=== PATIENT | female | born 1950 | race Caucasian/White ===

== ENCOUNTER → 2018-09-10 11:22 | Outpatient (CLI) | payer MEDICARE, OTHER, SELFPAY ==
--- NOTE | 2018-09-10 | DI.MG.S_ITS ---
BILATERAL DIGITAL SCREENING MAMMOGRAM 3D/2D WITH CAD: 09/10/2018 CLINICAL: Routine screening. Comparison is made to exams dated: 11/02/2017 mammogram, 01/02/2016 mammogram, and 11/14/2014 mammogram - [facility]. The tissue of both breasts is extremely dense, which lowers the sensitivity of mammography. Current study was also evaluated with a Computer Aided Detection (CAD) system. A linear scar marker overlies the right breast. No significant masses, calcifications, or other findings are seen in either breast. There has been no significant interval change. IMPRESSION: NEGATIVE There is no mammographic evidence of malignancy. A 1 year screening mammogram is recommended. This exam was interpreted at Station ID: [id number]. NOTE: For mammograms, a report in lay terms will be sent to the patient. Approximately 15% of breast malignancies will not be visualized mammographically. In the management of a palpable breast mass, a negative mammogram must not discourage biopsy of a clinically suspicious lesion. Electronically Signed By: Richard forde/breanna:09/13/2018 01:58:19 letter sent: Normal Exam ACR BI-RADS Category 1: Negative 3341F
== END ==
PROVIDERS: PCP Internal Medicine; Visit Provider Internal Medicine
DX: Z12.31 Encounter for screening mammogram for malignant neoplasm of breast (principal)
CPT/HCPCS: 77063; 77067

== ENCOUNTER 2019-08-11 12:47 | Day surgery (SDC) | payer MEDICARE, OTHER, SELFPAY ==
[2019-08-11] VITALS (8 sets, daily range): BP systolic 96–125; BP diastolic 56–74; PULSE 87–107; RESP 12–16; TEMP 36.5–37.1; O2SAT 97–100; BMI 18.6
[2019-08-11] MEDS: SODIUM CHLORIDE 0.9% 1,000 ML 42 ML IV (13:19)
--- NOTE | 2019-08-11 14:57 | PM.OP.ENDO ---
Operative Date/Time/Diagnoses Date of procedure: 08/11/19 Time of procedure: 14:58 Pre-op diagnosis: See indication and findings Procedure & Clinicians Study performed: Colonoscopy Same procedure as scheduled: Yes Indications: Screening colonoscopy. Last colonoscopy over 10 years ago Surgeon: Oralia Germain Procedure Notes Procedure in detail: After informed consent was obtained the patient was placed lateral decubitus position. Video colonoscope was placed the rectum slowly advanced to cecum. On slow withdrawal mucosa was carefully examined. The scope was removed. The patient tolerated the procedure well. Blood loss none Complications none Sedation Total sedation time 20 minutes Versed 5 mg fentanyl 100 mg IV titration Findings 1.Scattered colonic diverticulosis particularly in the sigmoid colon 2. Otherwise negative colonoscopy to cecum Patient will not need follow-up colonoscopy for another 10 years.
--- NOTE | 2019-08-11 15:00 | PM.HP.1 ---
History of Present Illness History of Present Illness Date Patient Seen: 08/11/19 Time Patient Seen: 15:00 Chief complaint: [id number] Narrative: Screening colonoscopy. Last colonoscopy over 10 years ago Patient History Social History household members: spouse Family & Social History Social History: household members spouse Meds Home Medications and Allergies Home Medications Medication Instructions Recorded Confirmed Type Citalopram Hydrobromide #0 06/13/10 History (Citalopram HBr) Ranitidine Hydrochloride #0 06/13/10 History (Ranitidine HCl) Sumatriptan Succinate (Imitrex) #0 06/13/10 History Topiramate (Topamax) #0 06/13/10 History Allergies Allergy/AdvReac Type Severity Reaction Status Date / Time No Known Drug Allergies Allergy Verified 08/11/19 13:14 Exam Vital Signs (past 8 hours): - 08/11/19 13:06 Temperature 98.1 F Pulse Rate 107 H Respiratory Rate 16 Blood Pressure 125/74 Pulse Oximetry 100 Oxygen Delivery Method Room Air Narrative Exam Narrative: Oropharynx free of lesions Chest clear to auscultation percussion Cardiac exam reveals no S3 or murmur Assessment & Plan Assessment & Plan narrative: Need for screening colonoscopy. Risks, benefits, alternatives have been explained.
[2019-08-11] MEDS: fentaNYL 250 MCG/5 ML INJ IV (15:02)
[2019-08-11] MEDS: MIDAZOLAM 5 MG/5 ML VIAL IV (15:02)
== END 2019-08-11 16:02 | disposition home or self-care (01) ==
LOC: ENDO 12:51
PROVIDERS: PCP Internal Medicine; Visit Provider Internal Medicine Gastroenterology
PROC: 0DJD8ZZ Inspection of Lower Intestinal Tract, Via Natural or Artificial Opening Endoscopic (ICD-10-PCS; CPT 45378; principal; 2019-08-11 14:00)
DX: Z12.11 Encounter for screening for malignant neoplasm of colon (principal); K57.30 Diverticulosis of large intestine without perforation or abscess without bleeding
CPT/HCPCS: G0121; J2250; J3010

== ENCOUNTER 2019-09-21 06:26 | Day surgery (SDC) | payer MEDICARE, OTHER, SELFPAY ==
[2019-09-21] MEDS: PROPARACAINE 0.5% OPHTH SOL 2 DROPS EYE-OP (07:12)
[2019-09-21] MEDS: CATARACT EYE COMPOUND (10 DROPS/SYRINGE) 3 DROPS EYE-OP (07:13)
[2019-09-21 07:22] VITALS: BP 119/64; PULSE 56; RESP 14; TEMP 36.8; O2SAT 100; BMI 18.6
--- NOTE | 2019-09-21 07:47 | PM.PREOP ---
Pre-operative Note Interval Note History & Physical reviewed/Exam performed by Physician: No Changes to H&P: No
--- NOTE | 2019-09-21 07:47 | PM.OP.1 ---
Operative Date/Time/Diagnoses Pre-op diagnosis: Nuclear cataract right eye Procedure & Clinicians Procedure: Cataract Surgery Same procedure as scheduled: Yes Surgeon: Elgin Gutierrez Anesthesia Type: MAC +/- and Sedation Operative Notes Procedure in detail: Patient brought to the operating suite. Tetracaine drops placed in the right eye. Patient was prepped and draped in sterile manner. Wire lid speculum was placed in the eye. Betadine drops were placed on the eye. This was irrigated. Lidocaine jelly was placed on the eye. A paracentesis port was created with a side-port blade. 0.1 mL 1% preservative free lidocaine was injected into the anterior chamber. The anterior chamber was deepened with viscoelastic. 2.6 mm keratome was used to create a temporal clear corneal incision. Cystotome and Utrata forceps were used to create continuous tear capsulorrhexis. Balanced salt solution was used to hydro dissect the nucleus. The phacoemulsification handpiece was inserted and the nucleus was removed using the stop and chop technique. The irrigation aspiration handpiece was inserted and the remaining cortex was removed. Anterior chamber was deepened with viscoelastic. An Skinner ZCB00 intraocular lens with a power of 24.0 was injected into the capsular bag. Irrigation aspiration handpiece was inserted and the remaining viscoelastic was removed. Incision was hydrated with balanced salt solution and found to be leak free with pressure with Weck-Heather sponges. 0.1 mL Vigamox injected anterior chamber. 0.3 mL Kenalog 10 mg was injected subconjunctivally. Lid speculum was removed. The patient left the operating room in excellent condition. Complications: none Post-operative Condition: stable Disposition: same day surgery
[2019-09-21] MEDS: LIDOCAINE JELLY 2% 5 ML 1 APPLIC TOP (08:01)
[2019-09-21] MEDS: CHONDROIDTIN/SOD HYALURONATE 1.05 ML SYRINGE INTRAOCULA (08:01)
[2019-09-21] MEDS: MOXIFLOXACIN INJ 5 MG/ML VIAL EYE-OP (08:01)
[2019-09-21] MEDS: TRIAMCINOLONE 50 MG/5 ML VIAL INJ (08:02)
[2019-09-21] MEDS: TETRACAINE 0.5% OPHTH DROPS 4 ML 2 DROPS EYE-OP (08:02)
[2019-09-21] MEDS: PHENYLEPHRINE/LIDOCAINE VIAL (OR) 0.2 ML EYE-OP (08:02)
[2019-09-21] MEDS: BALANCED SALT IRRIG SOLN NO.2 500 ML, EPINEPHrine 1 MG IRR (08:03)
[2019-09-21 08:19] VITALS: BP 140/73; PULSE 57; RESP 12; TEMP 36.7; O2SAT 98
--- NOTE | 2019-09-21 08:20 | SUR.PHASEII ---
From the OR, denies pain/nausea, states that she feels 'a little loopy'. Oriented and appropriate, fluids given and tolerated well.
== END 2019-09-21 08:37 | disposition home or self-care (01) ==
LOC: OR 06:28
PROVIDERS: PCP Internal Medicine; Visit Provider Ophthalmology
PROC: (CPT 66984; principal; 2019-09-21 07:45)
DX: H25.11 Age-related nuclear cataract, right eye (principal)
CPT/HCPCS: 66984; J0171; J2250; J3010; J3301

== ENCOUNTER 2019-10-05 06:55 | Day surgery (SDC) | payer MEDICARE, OTHER, SELFPAY ==
[2019-10-05] MEDS: PROPARACAINE 0.5% OPHTH SOL 2 DROPS EYE-OP (07:55)
[2019-10-05 07:57] VITALS: BP 123/63; PULSE 54; RESP 16; TEMP 36.2; O2SAT 100; BMI 18.1
[2019-10-05] MEDS: CATARACT EYE COMPOUND (10 DROPS/SYRINGE) 3 DROPS EYE-OP (08:05)
--- NOTE | 2019-10-05 08:36 | PM.PREOP ---
Pre-operative Note Interval Note History & Physical reviewed/Exam performed by Physician: No Changes to H&P: No
--- NOTE | 2019-10-05 08:36 | PM.OP.1 ---
Operative Date/Time/Diagnoses Pre-op diagnosis: Nuclear Cataract Left eye Post-op diagnosis: same Procedure & Clinicians Surgeon: Elgin Gutierrez Anesthesia Type: MAC +/- and Sedation Operative Notes Procedure in detail: Patient brought to the operating suite. Tetracaine drops placed in the left eye. Patient was prepped and draped in sterile manner. Wire lid speculum was placed in the eye. Betadine drops were placed on the eye. This was irrigated. Lidocaine jelly was placed on the eye. A paracentesis port was created with a side-port blade. 0.1 mL 1% preservative free lidocaine was injected into the anterior chamber. The anterior chamber was deepened with viscoelastic. 2.6 mm keratome was used to create a temporal clear corneal incision. Cystotome and Utrata forceps were used to create continuous tear capsulorrhexis. Balanced salt solution was used to hydro dissect the nucleus. The phacoemulsification handpiece was inserted and the nucleus was removed using the stop and chop technique. The irrigation aspiration handpiece was inserted and the remaining cortex was removed. Anterior chamber was deepened with viscoelastic. An Skinner ZCB00 intraocular lens with a power of 24.0 was injected into the capsular bag. Irrigation aspiration handpiece was inserted and the remaining viscoelastic was removed. Incision was hydrated with balanced salt solution and found to be leak free with pressure with Weck-Heather sponges. 0.1 mL Vigamox injected anterior chamber. 0.3 mL Kenalog 10 mg was injected subconjunctivally. Lid speculum was removed. The patient left the operating room in excellent condition. Complications: none Post-operative Condition: stable Disposition: same day surgery
--- NOTE | 2019-10-05 08:48 | SUR.OPER ---
Supine on eye stretcher, head on extension cradle secured with tape. Arms tucked at sides with blanket. Pillow under knees.
[2019-10-05] MEDS: MOXIFLOXACIN INJ 5 MG/ML VIAL EYE-OP (08:50)
[2019-10-05] MEDS: TRIAMCINOLONE 50 MG/5 ML VIAL INJ (08:50)
[2019-10-05] MEDS: PHENYLEPHRINE/LIDOCAINE VIAL (OR) 0.2 ML EYE-OP (08:50)
[2019-10-05] MEDS: TETRACAINE 0.5% OPHTH DROPS 4 ML 2 DROPS EYE-OP (08:51)
[2019-10-05] MEDS: CHONDROIDTIN/SOD HYALURONATE 1.05 ML SYRINGE INTRAOCULA (08:51)
[2019-10-05] MEDS: LIDOCAINE JELLY 2% 5 ML 1 APPLIC TOP (08:51)
[2019-10-05] MEDS: BALANCED SALT IRRIG SOLN NO.2 500 ML, EPINEPHrine 1 MG IRR (08:52)
[2019-10-05 09:15] VITALS: BP 126/71; PULSE 56; RESP 16; TEMP 36.2; O2SAT 99
== END 2019-10-05 09:21 | disposition home or self-care (01) ==
LOC: OR 06:57
PROVIDERS: PCP Internal Medicine; Visit Provider Ophthalmology
PROC: (CPT 66984; principal; 2019-10-05 08:45)
DX: H25.12 Age-related nuclear cataract, left eye (principal)
CPT/HCPCS: 66984; J0171; J2250; J3010; J3301

== ENCOUNTER → 2020-06-06 15:05 | Outpatient (CLI) | payer MEDICARE, OTHER, SELFPAY ==
--- NOTE | 2020-06-06 | DI.MG.S_ITS ---
BILATERAL DIGITAL SCREENING MAMMOGRAM 3D/2D WITH CAD: 06/06/2020 CLINICAL: Routine screening. Comparison is made to exams dated: 09/10/2018 mammogram - [facility], 01/02/2016 mammogram, 11/02/2017 mammogram, and 11/14/2014 mammogram - [facility] [place]. The tissue of both breasts is extremely dense, which lowers the sensitivity of mammography. Current study was also evaluated with a Computer Aided Detection (CAD) system. No significant masses, calcifications, or other findings are seen in either breast. There has been no significant interval change. IMPRESSION: NEGATIVE There is no mammographic evidence of malignancy. A 1 year screening mammogram is recommended. This exam was interpreted at Station ID: [id number]. NOTE: For mammograms, a report in lay terms will be sent to the patient. Approximately 15% of breast malignancies will not be visualized mammographically. In the management of a palpable breast mass, a negative mammogram must not discourage biopsy of a clinically suspicious lesion. Electronically Signed By: Beckie patiño/breanna:06/06/2020 17:53:01 letter sent: Normal Exam ACR BI-RADS Category 1: Negative 3341F
== END ==
PROVIDERS: PCP Internal Medicine; Referring Provider Internal Medicine; Visit Provider Internal Medicine
DX: Z12.31 Encounter for screening mammogram for malignant neoplasm of breast (principal); Z13.820 Encounter for screening for osteoporosis; M81.0 Age-related osteoporosis without current pathological fracture; Z78.0 Asymptomatic menopausal state; Z82.62 Family history of osteoporosis
CPT/HCPCS: 77063; 77067; 77080

== ENCOUNTER → 2021-03-12 10:38 | Outpatient (CLI) | payer MEDICARE, OTHER, SELFPAY ==
[2021-03-12 11:54] LABS: Add Manual Diff / Slide Review NO; Basophils Absolute Auto 100 /uL (0-100); Basophils Percent Auto 0.9 % (0-2); Eosinophils Absolute Auto 100 /uL (0-450); Eosinophils Percent Auto 2.2 % (2-4); Hematocrit 38.9 % (36-46); Hemoglobin 13.1 g/dL (12.0-16.0); Lymphocytes Absolute Auto 2100 /uL (1100-4500); Lymphocytes Percent Auto 31.1 % (25-40); Mean Corpuscular HGB Conc 33.5 % (30-36); Mean Corpuscular Hemoglobin 30.1 PG (26-34); Mean Corpuscular Volume 89.8 fL (80-100); Monocytes Absolute Auto 600 /uL (0-900); Monocytes Percent Auto 8.5 % (3-14); Neutrophils Absolute Auto 3800 /uL (1500-7000); Neutrophils Percent Auto 57.3 % (50-75); Platelet Count 192 X10^3/uL (150-400); Red Blood Cell Count 4.33 X10^6/uL (4.0-5.2); Red Cell Distribution Width 13.7 % (11.6-14.8); White Blood Cell Count 6.7 X10^3/uL (4.5-11.0)
[2021-03-12 11:58] LABS: Alanine Aminotransferase 21 IU/L (<35); Albumin 4.6 g/dL (3.5-5.0); Albumin Globulin Ratio 1.6 (1.0-2.8); Alkaline Phosphatase 48 U/L (38-126); Aspartate Aminotransferase 27 IU/L (14-36); BUN Creatinine Ratio 24.1 (6-22); Bilirubin Total 0.2 mg/dL (0.2-1.3); Blood Urea Nitrogen 19 mg/dL (7-17); Calcium 10.3 mg/dL (8.4-10.2); Carbon Dioxide 26 mmol/L (22-32); Chloride 107 mmol/L (98-107); Estimated Glomerular Filt Rate > 60.0 mL/min (>60); Globulin 2.8 g/dL (1.7-4.1); Glucose 97 mg/dL (80-110); HEMOLYSIS < 15 (0-50); Potassium 4.8 mmol/L (3.4-5.1); Sodium 139 mmol/L (137-145); Total Protein 7.4 g/dL (6.3-8.2)
== END ==
PROVIDERS: PCP Registered Nurse; Referring Provider Registered Nurse; Visit Provider Registered Nurse
DX: G43.709 Chronic migraine without aura, not intractable, without status migrainosus (principal); N39.0 Urinary tract infection, site not specified
CPT/HCPCS: 36415; 80053; 85025

== ENCOUNTER → 2021-08-02 14:10 | Outpatient (CLI) | payer MEDICARE, OTHER, SELFPAY ==
--- NOTE | 2021-08-02 14:12 | DI.MG.S_ITS ---
BILATERAL DIGITAL SCREENING MAMMOGRAM 3D/2D WITH CAD: 08/02/2021 CLINICAL: Routine screening. Comparison is made to exams dated: 06/06/2020 mammogram, 09/10/2018 mammogram - [facility], and 11/02/2017 mammogram - [facility] [place]. The tissue of both breasts is extremely dense, which lowers the sensitivity of mammography. Current study was also evaluated with a Computer Aided Detection (CAD) system. No significant masses, calcifications, or other findings are seen in either breast. There has been no significant interval change. IMPRESSION: NEGATIVE There is no mammographic evidence of malignancy. A 1 year screening mammogram is recommended. This exam was interpreted at Station ID: [id number]. NOTE: For mammograms, a report in lay terms will be sent to the patient. Approximately 15% of breast malignancies will not be visualized mammographically. In the management of a palpable breast mass, a negative mammogram must not discourage biopsy of a clinically suspicious lesion. Electronically Signed By: Jamari Pena M.D., jr/breanna:08/02/2021 15:39:35 letter sent: Normal Exam ACR BI-RADS Category 1: Negative 3341F
== END ==
PROVIDERS: PCP Registered Nurse; Referring Provider Registered Nurse; Visit Provider Registered Nurse
DX: Z12.31 Encounter for screening mammogram for malignant neoplasm of breast (principal)
CPT/HCPCS: 77063; 77067

== ENCOUNTER → 2022-07-09 14:33 | Outpatient (CLI) | payer MEDICARE, OTHER, SELFPAY | PROVIDERS: PCP Registered Nurse Diabetes Educator; Referring Provider Registered Nurse Diabetes Educator; Visit Provider Registered Nurse Diabetes Educator | DX: Z13.820 Encounter for screening for osteoporosis (principal); M81.0 Age-related osteoporosis without current pathological fracture; Z78.0 Asymptomatic menopausal state | CPT/HCPCS: 77080 ==

== ENCOUNTER → 2022-08-15 11:33 | Outpatient (CLI) | payer MEDICARE, OTHER, SELFPAY ==
--- NOTE | 2022-08-15 11:37 | DI.MG.S_ITS ---
BILATERAL DIGITAL SCREENING MAMMOGRAM 3D/2D WITH CAD: 08/15/2022 CLINICAL: Routine screening. Comparison is made to exams dated: 08/02/2021 mammogram, 06/06/2020 mammogram, and 09/10/2018 mammogram - [facility]. Both breasts are extremely dense, which lowers the sensitivity of mammography (category d />75% glandular tissue). Current study was also evaluated with a Computer Aided Detection (CAD) system. No significant masses, calcifications, or other findings are seen in either breast. There has been no significant interval change. IMPRESSION: NEGATIVE There is no mammographic evidence of malignancy. A 1 year screening mammogram is recommended. Based on the Tyrer Cuzick model (a risk assessment model) the patient's lifetime risk is 10.9% and her 10 year risk is 7.6%. According to the ACR, ACS, and NCCN guidelines, an annual breast MRI exam along with mammogram is recommended if the patient's lifetime risk is 20% or greater. This exam was interpreted at Station ID: [id number]. NOTE: For mammograms, a report in lay terms will be sent to the patient. Approximately 15% of breast malignancies will not be visualized mammographically. In the management of a palpable breast mass, a negative mammogram must not discourage biopsy of a clinically suspicious lesion. Electronically Signed By: Fidel aguilar/breanna:08/15/2022 12:32:02 letter sent: Normal Exam ACR BI-RADS Category 1: Negative 3341F
== END ==
PROVIDERS: PCP Registered Nurse Diabetes Educator; Referring Provider Registered Nurse Diabetes Educator; Visit Provider Registered Nurse Diabetes Educator
DX: Z12.31 Encounter for screening mammogram for malignant neoplasm of breast (principal)
CPT/HCPCS: 77063; 77067

== ENCOUNTER → 2023-08-21 13:22 | Outpatient (CLI) | payer MEDICARE, OTHER, SELFPAY ==
--- NOTE | 2023-08-21 13:26 | DI.MG.S_ITS ---
BILATERAL DIGITAL SCREENING MAMMOGRAM 3D/2D WITH CAD: 08/21/2023 CLINICAL: Routine screening. Comparison is made to exams dated: 08/15/2022 mammogram, 08/02/2021 mammogram, and 06/06/2020 mammogram - [facility]. Both breasts are extremely dense, which lowers the sensitivity of mammography (category d />75% glandular tissue). Current study was also evaluated with a Computer Aided Detection (CAD) system. No significant masses, calcifications, or other findings are seen in either breast. There has been no significant interval change. IMPRESSION: NEGATIVE There is no mammographic evidence of malignancy. A 1 year screening mammogram is recommended. Based on the Tyrer Cuzick model (a risk assessment model) the patient's lifetime risk is 10.3% and her 10 year risk is 7.8%. According to the ACR, ACS, and NCCN guidelines, an annual breast MRI exam along with mammogram is recommended if the patient's lifetime risk is 20% or greater. This exam was interpreted at Station ID: [id number]. NOTE: For mammograms, a report in lay terms will be sent to the patient. Approximately 15% of breast malignancies will not be visualized mammographically. In the management of a palpable breast mass, a negative mammogram must not discourage biopsy of a clinically suspicious lesion. Electronically Signed By: Ling stoll/breanna:08/21/2023 16:52:12 letter sent: Normal Exam ACR BI-RADS Category 1: Negative 3341F
== END ==
PROVIDERS: PCP Registered Nurse Diabetes Educator; Referring Provider Registered Nurse Diabetes Educator; Visit Provider Registered Nurse Diabetes Educator
DX: Z12.31 Encounter for screening mammogram for malignant neoplasm of breast (principal)
CPT/HCPCS: 77063; 77067

== ENCOUNTER 2024-04-25 21:07 | Observation (INO) | payer MEDICARE, OTHER, SELFPAY ==
[2024-04-25 21:23] VITALS: BP 124/58; PULSE 84; RESP 18; TEMP 36.5; O2SAT 100; BMI 19.3
[2024-04-25] MEDS: ONDANSETRON 4 MG/2 ML INJ IV ×2 (22:00→22:45)
[2024-04-25 22:03] LABS: Add Manual Diff / Slide Review NO; Basophils Absolute Auto 0 /uL (0-100); Basophils Percent Auto 0.3 % (0-2); Eosinophils Absolute Auto 0 /uL (0-450); Eosinophils Percent Auto 0.1 % (2-4); Hematocrit 37.9 % (36-46); Lymphocytes Absolute Auto 1300 /uL (1100-4500); Lymphocytes Percent Auto 6.7 % (25-40); Mean Corpuscular HGB Conc 34.3 % (30-36); Mean Corpuscular Hemoglobin 30.4 PG (26-34); Mean Corpuscular Volume 88.7 fL (80-100); Monocytes Absolute Auto 900 /uL (0-900); Monocytes Percent Auto 4.7 % (3-14); Neutrophils Absolute Auto 16700 /uL (1500-7000); Neutrophils Percent Auto 88.2 % (50-75); Platelet Count 212 X10^3/uL (150-400); Red Blood Cell Count 4.28 X10^6/uL (4.0-5.2); Red Cell Distribution Width 13.5 % (11.6-14.8); White Blood Cell Count 18.9 X10^3/uL (4.5-11.0)
[2024-04-25 22:10] LABS: Alanine Aminotransferase 23 IU/L (<35); Albumin 4.5 g/dL (3.5-5.0); Albumin Globulin Ratio 1.7 (1.0-2.8); Alkaline Phosphatase 74 U/L (38-126); Aspartate Aminotransferase 25 IU/L (14-36); BUN Creatinine Ratio 24.7 (6-22); Bilirubin Total 0.6 mg/dL (0.2-1.3); Blood Urea Nitrogen 21 mg/dL (7-17); Calcium 9.8 mg/dL (8.4-10.2); Carbon Dioxide 19 mmol/L (22-32); Chloride 109 mmol/L (98-107); Estimated Glomerular Filt Rate > 60 mL/min (>60); Globulin 2.7 g/dL (1.7-4.1); Glucose 197 mg/dL (80-110); HEMOLYSIS < 15 (0-50); Lipase 95 U/L (23-300); Sodium 139 mmol/L (137-145); Total Protein 7.2 g/dL (6.3-8.2)
--- NOTE | 2024-04-25 22:21 | ED.NAVMDI ---
HPI - Nausea/Vomiting/Diarrhea General Chief complaint: Nausea/Vomiting/Diarrhea Stated complaint: Abd pain/V/D Time Seen by Provider: 04/25/24 21:48 Source: patient Mode of arrival: Wheelchair History of Present Illness HPI Narrative: 74-year-old female with history of migraines presents for several hours of nausea, vomiting, diarrhea, vague right-sided abdominal pain. Pain located somewhere between the upper bones of her pelvis and her ribcage. Nothing seems to make it better or worse. Denies blood in emesis or diarrhea. Denies fevers. Related Data Home Medications Medication Instructions Recorded Confirmed latanoprost 0.005 % eye drops 1 drop EYE-BOTH DAILY 08/11/20 03/23/24 sumatriptan succinate 100 mg tablet 100 mg PO BID PRN 08/11/20 03/23/24 Previous Rx's Medication Instructions Recorded topiramate 50 mg tablet 50 mg PO DAILY #90 tabs 07/05/21 citalopram 40 mg tablet 40 mg PO DAILY #90 tabs 09/17/21 Allergies Allergy/AdvReac Type Severity Reaction Status Date / Time ibandronate sodium Allergy dysphagia Verified 03/23/24 15:15 [From Boniva] Penicillins Allergy Verified 03/23/24 15:15 Patient History Medical History Osteoporosis UTI (urinary tract infection) Chronic migraine Osteopenia Glaucoma History of atypical migraine Melanoma in situ of right lower leg (~2005) Surgical History Anesthesia History of cataract removal with insertion of prosthetic lens (~2018) History of colonoscopy Family History Father Hyperlipidemia Mother Congestive heart failure Hypertension Social History household members: spouse Smoking Status: Never smoker alcohol intake: never Smoking Status: Never smoker Exam Initial Vital Signs Initial Vital Signs: Vital Signs Temperature 97.7 F 04/25/24 21:23 Pulse Rate 84 04/25/24 21:23 Respiratory Rate 18 04/25/24 21:23 Blood Pressure 124/58 L 04/25/24 21:23 Pulse Oximetry 100 04/25/24 21:23 Oxygen Delivery Method Room Air 04/25/24 21:23 Const: Awake, alert, ill-appearing, nontoxic, actively dry heaving Cardiac: regular rate, regular rhythm RESP: unlabored, clear bilaterally, no wheezing GI: Soft, generalized right-sided tenderness to palpation, no rebound or guarding Skin: Warm, Dry, intact, no rashes Neuro: AO x3, CN II-XII grossly intact, moves all extremities Course Orders Ordered: ED Orders 04/25/24 21:50 Complete Blood Count AUTO DIFF Stat Comprehensive Metabolic Panel Stat Lipase Stat 04/25/24 21:55 EKG-12 Lead Stat 04/25/24 22:32 CT abdomen pelvis w con Stat Sodium Chloride (Normal Saline 0.9%) 1,000 mls @ 125 mls/hr IV CONT CHENTE Last Admin: 04/26/24 02:46 Dose: 125 mls/hr Documented By: RICKI Morphine Sulfate (Morphine 2 Mg/Ml Inj) 2 mg IV Q4HR PRN PRN Reason: Pain, Moderate (4-6) Ondansetron HCl (Ondansetron 4 Mg/2 Ml Inj) 4 mg IV NOW PRN PRN Reason: Nausea And Vomiting Last Admin: 04/25/24 22:00 Dose: 4 mg Documented By: Ondansetron HCl (Ondansetron 4 Mg Odt) 4 mg PO NOW PRN PRN Reason: Nausea And Vomiting Ondansetron HCl (Ondansetron 4 Mg/2 Ml Inj) 4 mg IV Q4HR PRN PRN Reason: Nausea And Vomiting Discontinued Medications Citalopram Hydrobromide (Citalopram 10 Mg Tablet) 40 mg PO NOW ONE Stop: 04/26/24 00:48 Last Admin: 04/26/24 01:48 Dose: 40 mg Documented By: RICKI Droperidol (Droperidol 5 Mg/2 Ml Vial) 2.5 mg IV NOW ONE Stop: 04/25/24 23:09 Last Admin: 04/25/24 23:14 Dose: 2.5 mg Documented By: Sodium Chloride (Normal Saline 0.9%) 1,000 mls @ 1,000 mls/hr IV BOLUS ONE Stop: 04/25/24 23:39 Last Infusion: 04/25/24 23:50 Dose: Infused Documented By: Admin: 04/25/24 23:01 Dose: 1,000 mls/hr Documented By: Ceftriaxone Sodium 1,000 mg/ (Sodium Chloride) 100 mls @ 200 mls/hr IV NOW ONE Stop: 04/26/24 00:46 Last Infusion: 04/26/24 01:49 Dose: Infused Documented By: Admin: 04/26/24 01:13 Dose: 200 mls/hr Documented By: Metronidazole (Flagyl) 500 mg in 100 mls @ 100 mls/hr IV NOW ONE Stop: 04/26/24 01:44 Last Admin: 04/26/24 01:43 Dose: 100 mls/hr Documented By: RICKI Ondansetron HCl (Ondansetron 4 Mg/2 Ml Inj) 4 mg IV NOW ONE Stop: 04/25/24 22:41 Last Admin: 04/25/24 22:45 Dose: 4 mg Documented By: Topiramate (Topiramate 25 Mg Tablet) 50 mg PO NOW ONE Stop: 04/26/24 00:48 Last Admin: 04/26/24 01:47 Dose: 50 mg Documented By: RICKI Vital Signs Vital signs: Vital Signs - 8 hr 04/25/24 21:23 Temperature 97.7 F Pulse Rate 84 Respiratory Rate 18 Blood Pressure 124/58 L Pulse Oximetry 100 Oxygen Delivery Method Room Air MDM - Nausea/Vomiting/Diarrhea Differential Diagnosis Differential diagnosis: Likely traveler's diarrhea, food poisoning and gastroenteritis Lab Data 04/25/24 21:50 04/25/24 21:50 Labs: Lab Results 04/25/24 Range/Units 21:50 WBC 18.9 H (4.5-11.0) X10^3/uL RBC 4.28 (4.0-5.2) X10^6/uL Hgb 13.0 (12.0-16.0) g/dL Hct 37.9 (36-46) % MCV 88.7 (80-100) fL MCH 30.4 (26-34) PG MCHC 34.3 (30-36) % RDW 13.5 (11.6-14.8) % Plt Count 212 (150-400) X10^3/uL Neut % (Auto) 88.2 H (50-75) % Lymph % (Auto) 6.7 L (25-40) % Eddy % (Auto) 4.7 (3-14) % Eos % (Auto) 0.1 L (2-4) % Baso % (Auto) 0.3 (0-2) % Neut # (Auto) 44955 H (8784-6421) /uL Lymph # (Auto) 1300 (8749-1775) /uL Eddy # (Auto) 900 (0-900) /uL Eos # (Auto) 0 (0-450) /uL Baso # (Auto) 0 (0-100) /uL Sodium 139 (137-145) mmol/L Potassium 3.0 L (3.4-5.1) mmol/L Chloride 109 H (98-107) mmol/L Carbon Dioxide 19 L (22-32) mmol/L BUN 21 H (7-17) mg/dL Creatinine 0.85 (0.52-1.04) mg/dL Estimated GFR > 60 (>60) mL/min BUN/Creatinine Ratio 24.7 H (6-22) Glucose 197 H (80-110) mg/dL Calcium 9.8 (8.4-10.2) mg/dL Total Bilirubin 0.6 (0.2-1.3) mg/dL AST 25 (14-36) IU/L ALT 23 (<35) IU/L Alkaline Phosphatase 74 (38-126) U/L Total Protein 7.2 (6.3-8.2) g/dL Albumin 4.5 (3.5-5.0) g/dL Globulin 2.7 (1.7-4.1) g/dL Albumin/Globulin Ratio 1.7 (1.0-2.8) Lipase 95 (23-300) U/L Imaging Data CT scan - abdomen/pelvis: Radiologist's Impression: PROCEDURE: CT ABDOMEN PELVIS W CON INDICATIONS: N/V/UPPER ABD PAIN TECHNIQUE: After the administration of intravenous contrast, axial sections acquired from the lung bases to the pubic symphysis. Coronal and sagittal reformats were performed. For radiation dose reduction, the following was used: automated exposure control, adjustment of mA and/or kV according to patient size. COMPARISON: None. FINDINGS: Image quality: Diagnostic. Lower Chest: No significant findings. ABDOMEN: Liver: No solid mass. Gallbladder: No radiopaque gallstones or wall thickening. Biliary ducts: No biliary dilation. Pancreas: No ductal dilation. Spleen: Size is within normal limits. Adrenal Glands: No adrenal nodules. Kidneys and Ureters: No hydronephrosis. No solid mass. No complex renal cystic lesion which requires follow up. Stomach and Bowel: Normal colonic caliber, without significant wall thickening. Dilated appendix measuring up to 1.5 cm in caliber, for example series 2, image 51. No adjacent fat stranding or indication of surrounding periappendiceal inflammation. Peritoneum: No abnormal intraperitoneal fluid. No free air. Ventral Wall: No significant ventral hernia. Abdominal Nodes: No retroperitoneal or mesenteric adenopathy by size criteria. Vessels: Aorta and inferior vena cava are normal in size. PELVIS: Pelvic Organs: Calcified uterine fibroids.. Bladder: No bladder wall thickening, accounting for underdistention. Pelvic Nodes: No enlarged lymph nodes. Miscellaneous: No inguinal hernias are seen. Bones: No aggressive osseous abnormality. Degenerative change of the visualized spine without acute osseous abnormality. IMPRESSION: Dilated appendix measuring up to 1.5 cm in caliber without mural enhancement or periappendiceal inflammation. Findings are equivocal for acute appendicitis, possible early appendicitis versus mucocele. Approved by: Shannon Vital M.D.,Ph.D. on 04/26/2024 at 0:13 MDM Narrative Medical decision making narrative: Ill-appearing but nontoxic patient presenting for nausea and vomiting with abdominal pain. Abdomen is soft but she was tender to deep palpation in the right side of her abdomen, both upper and lower quadrants. Pain and nausea medications ordered. IV fluids ordered. Laboratory work is significant for WBC count 18.9, hemoglobin 13.0, platelet count 212, sodium 139, potassium 3.0, creatinine 0.85, glucose 197. CT of the abdomen and pelvis shows dilated appendix, however no surrounding inflammatory changes. Findings could represent early appendicitis versus mucocele. Case discussed with on-call general surgeon Dr. Jones, who stated that with elevated white blood cell count and no other explanation for symptoms it would be better to simply remove the appendix. We will admit to his service and he will take patient to OR likely tomorrow. Patient made NPO and admitted for further treatment. Discharge Plan Departure Patient Disposition: Admitted as Observation Clinical Impression: Acute appendicitis Admit Date/Time: 04/26/24 00:47 Admit Provider: Trevor Jones
--- NOTE | 2024-04-25 22:32 | DI.CT.S_ITS ---
PROCEDURE: CT ABDOMEN PELVIS W CON INDICATIONS: N/V/UPPER ABD PAIN TECHNIQUE: After the administration of intravenous contrast, axial sections acquired from the lung bases to the pubic symphysis. Coronal and sagittal reformats were performed. For radiation dose reduction, the following was used: automated exposure control, adjustment of mA and/or kV according to patient size. COMPARISON: None. FINDINGS: Image quality: Diagnostic. Lower Chest: No significant findings. ABDOMEN: Liver: No solid mass. Gallbladder: No radiopaque gallstones or wall thickening. Biliary ducts: No biliary dilation. Pancreas: No ductal dilation. Spleen: Size is within normal limits. Adrenal Glands: No adrenal nodules. Kidneys and Ureters: No hydronephrosis. No solid mass. No complex renal cystic lesion which requires follow up. Stomach and Bowel: Normal colonic caliber, without significant wall thickening. Dilated appendix measuring up to 1.5 cm in caliber, for example series 2, image 51. No adjacent fat stranding or indication of surrounding periappendiceal inflammation. Peritoneum: No abnormal intraperitoneal fluid. No free air. Ventral Wall: No significant ventral hernia. Abdominal Nodes: No retroperitoneal or mesenteric adenopathy by size criteria. Vessels: Aorta and inferior vena cava are normal in size. PELVIS: Pelvic Organs: Calcified uterine fibroids.. Bladder: No bladder wall thickening, accounting for underdistention. Pelvic Nodes: No enlarged lymph nodes. Miscellaneous: No inguinal hernias are seen. Bones: No aggressive osseous abnormality. Degenerative change of the visualized spine without acute osseous abnormality. IMPRESSION: Dilated appendix measuring up to 1.5 cm in caliber without mural enhancement or periappendiceal inflammation. Findings are equivocal for acute appendicitis, possible early appendicitis versus mucocele. Approved by: Shannon Vital M.D.,Ph.D. on 04/26/2024 at 0:13
[2024-04-25] MEDS: SODIUM CHLORIDE 0.9% 1,000 ML 1000 ML IV (23:01)
[2024-04-25] MEDS: DROPERIDOL 5 MG/2 ML VIAL 2.5 MG IV (23:14)
[2024-04-26] VITALS (14 sets, daily range): BP systolic 93–139; BP diastolic 42–69; PULSE 6–99; RESP 12–92; TEMP 36.3–38.3; O2SAT 93–99; BMI 19.3
--- NOTE | 2024-04-26 | PATH_ITS ---
[facility] Accession Number: [id number] No. of containers..01 Tissue . 01 Material submitted: . appendix - APPENDIX . 01 Diagnosis: APPENDIX, APPENDECTOMY: Acute appendicitis and perappendicitis. [facility] 05/03/2024 1048 Local . 01 Electronically signed: . Melyssa Gonzalez MD, Pathologist NPI- [id number] . 01 Gross description: . Received in formalin with two patient identifiers and appendix, is a vermiform appendix measuring 9.3 cm in length by 1.2 cm in average diameter. The serosa is mendoza with adherent material consistent with exudate and a small amount of mesoappendix extending out to 1.1 cm. The lumen contains cloudy purulent fluid with no calculi identified, and measures up to 1.0 cm in greatest diameter. The arango are red to mendoza and average 0.1 cm thick with no perforation or lesions identified. [employer] sections to include one-half of the bisected distal tip, margin, and cross section are submitted in A1. ([id number]) /MRV 04/27/2024 1745 Local . 01 Pathologist provided ICD-10: K35.80 . 01 CPT . 260098 Specimen Comment: A courtesy copy of this report has been sent to [phone] Performed at: [address] [address], [place], [place] [id number] MD Colton Hernández MD Phone: [phone]
[2024-04-26] MEDS: cefTRIAXone 1,000 MG in SODIUM CHLORIDE 0.9% 100 ML 200 MG IV (01:13)
[2024-04-26] MEDS: metroNIDAZOLE 500 MG/100 ML PIGGYBACK 100 MG IV ×2 (01:43→20:15)
[2024-04-26] MEDS: TOPIRAMATE 25 MG TABLET 50 MG PO (01:47)
[2024-04-26] MEDS: CITALOPRAM 10 MG TABLET 40 MG PO (01:48)
[2024-04-26] MEDS: SODIUM CHLORIDE 0.9% 1,000 ML 125 ML IV ×2 (02:46→12:23)
--- NOTE | 2024-04-26 08:38 | PC.NURSE ---
Addendum entered by Destini Kramer R.N. 04/26/24 19:04: Patient back from appendectomy. She has 3 small bandaide dressings to her lower abdomen. Patient denies pain. Temp is 98.2. She is tolerating water and resting comfortably. Addendum entered by Destini Kramer R.N. 04/26/24 16:43: Patient brought down to surgery earlier. Original Note: Patient denies pain to r.lower quadrant and nausea at this time. She is resting and has been NPO. Up with sba to bathroom. Tolerating ivf, supportive and in patients room.
--- NOTE | 2024-04-26 12:25 | PM.HP.1 ---
History of Present Illness History of Present Illness Date Patient Seen: 04/26/24 Time Patient Seen: 12:25 Chief complaint: Abd pain/V/D Narrative: Willow Freeman is a 74-year-old woman who presented to the ER overnight because of right-sided abdominal pain for 1 day. She had also had quite a bit of nausea and vomiting. In the ER she was noted to have leukocytosis and a CT scan showed a dilated appendix consistent with uncomplicated appendicitis versus mucocele. [facility] Medical History Osteoporosis UTI (urinary tract infection) Chronic migraine Osteopenia Glaucoma History of atypical migraine Melanoma in situ of right lower leg (~2005) Surgical History Anesthesia History of cataract removal with insertion of prosthetic lens (~2018) History of colonoscopy Family History Father Hyperlipidemia Mother Congestive heart failure Hypertension Social History household members: spouse Smoking Status: Never smoker alcohol intake: never Meds Home Medications and Allergies Home Medications Medication Instructions Recorded Confirmed Type latanoprost 0.005 % eye drops 1 drop EYE-BOTH DAILY 08/11/20 04/26/24 History sumatriptan succinate 100 mg tablet 100 mg PO DAILY PRN Migraine 08/11/20 04/26/24 History Headache topiramate 50 mg tablet 50 mg PO DAILY #90 tabs 07/05/21 04/26/24 Rx citalopram 40 mg tablet 40 mg PO DAILY #90 tabs 09/17/21 04/26/24 Rx Allergies Allergy/AdvReac Type Severity Reaction Status Date / Time ibandronate sodium Allergy dysphagia Verified 03/23/24 15:15 [From Boniva] Penicillins Allergy Verified 03/23/24 15:15 Exam Vital Signs (past 8 hours): - 04/26/24 08:58 Temperature 99.2 F Pulse Rate 92 H Respiratory Rate 15 Blood Pressure 139/69 Pulse Oximetry 97 Oxygen Delivery Method Room Air Oxygen Flow Rate 0 Narrative Exam Narrative: Tender to palpation in the right lower quadrant Objective Labs 04/25/24 21:50 04/25/24 21:50 Labs: Laboratory Results - last 24 hr 04/25/24 21:50 WBC 18.9 H RBC 4.28 Hgb 13.0 Hct 37.9 MCV 88.7 MCH 30.4 MCHC 34.3 RDW 13.5 Plt Count 212 Neut % (Auto) 88.2 H Lymph % (Auto) 6.7 L Norman % (Auto) 4.7 Eos % (Auto) 0.1 L Baso % (Auto) 0.3 Neut # (Auto) 78804 H Lymph # (Auto) 1300 Norman # (Auto) 900 Eos # (Auto) 0 Baso # (Auto) 0 Sodium 139 Potassium 3.0 L Chloride 109 H Carbon Dioxide 19 L BUN 21 H Creatinine 0.85 Estimated GFR > 60 BUN/Creatinine Ratio 24.7 H Glucose 197 H Calcium 9.8 Total Bilirubin 0.6 AST 25 ALT 23 Alkaline Phosphatase 74 Total Protein 7.2 Albumin 4.5 Globulin 2.7 Albumin/Globulin Ratio 1.7 Lipase 95 Assessment & Plan Assessment and plan (1) Acute appendicitis: Status: Acute Plan I discussed the CT scan findings with Willow of acute appendicitis versus mucocele. I recommended laparoscopic appendectomy and she would like to proceed with surgery. She did receive a dose of ceftriaxone in the emergency department.
--- NOTE | 2024-04-26 13:34 | CM.DANOTE ---
Initial DCP Assessment Visit Note Reviewed EMR and team rounds for pt's medical status and updates. Met with pt and spouse at bedside to introduce self and role, pt was found to be resting comfortable in bed, somnolent yet able to participated in questions related to her discharge and preferences. Pt/spouse are [employer], and live in [place] for the winter months, then here in [place] during the summer months. She is independent at baseline, does not use an AD for baseline mobility. Her spouse will drive her home once she's been medically cleared for d/c, which will likely be this evening. They deny any d/c assistance/resource needs from CM at this time. Payor: [employer] Federal, Medicare PCP: Homero Haynes Pt is a 74 year-old F who presented to the ED last evening following several hours of nausea, vomiting, and diarrhea, and abdominal pain that did not subside over time and interventions. CT abd/pelvis in the ED showed acute appendicitis. Surgery was consulted, and due to pt's high WBC count, the decision was made to make her NPO with a plan for a appendectomy, which will happen today at 3:00pm. She was additionally started on IV fluids, pain meds, and antemetics. This DCP will continue to follow and assist with any further evolving needs postoperatively. Discharge Planning/Care Management CM Discharge Assessment Start: 04/26/24 13:32 Freq: Status: Active Protocol: Document 04/26/24 13:33 DPL (Rec: 04/26/24 13:34 DPL [id number]) Discharge Planning Assessment Assigned [employer] MARYANN Contreras Advance Directives? Yes Advance Directives on File No History Provided By Patient,Significant Other, Medical Record Has Patient been admitted in last 30 No days? Prior Living Arrangements House Household Members spouse Type of transporation used prior to Drives own vehicle admit Independent with ADL's Yes Is patient alert and oriented? Yes Caregiver for Another No Comment N/A Comment No anticipated d/c needs identified at this time. Barriers to Discharge No Discharge Plan Home Referrals Initiated None needed Whiteboard Updated in Patient Room with Yes name and ext. # of [employer] Review Status In Process Please Provide Date Initial DC 04/26/24 Assessment Was Performed
[2024-04-26] MEDS: ACETAMINOPHEN IV 1,000 MG/100 ML VIAL 400 MG IV (15:42)
[2024-04-26] MEDS: LACTATED RINGERS 1,000 ML 42 ML IV (15:43)
--- NOTE | 2024-04-26 16:10 | SUR.OPER ---
Supine on padded OR bed, head on pillow, arms padded and tucked at sides, legs uncrossed, safety belt at thigh, tape over blanket over lower legs .
[2024-04-26] MEDS: BUPIVACAINE 0.5% (PF) 30 ML, EPINEPHrine 0.15 MG INJ (16:15)
--- NOTE | 2024-04-26 16:55 | PM.OP.1 ---
Operative Date/Time/Diagnoses Date of procedure: 04/26/24 Time of procedure: 16:55 Pre-op diagnosis: Acute appendicitis Post-op diagnosis: same Procedure & Clinicians Procedure: Laparoscopic appendectomy Same procedure as scheduled: Yes Surgeon: Trevor Jones Anesthesia Type: General Operative Notes Procedure in detail: The patient was on scheduled IV antibiotics. The patient was brought to the operating room, placed on the table in the supine position and general endotracheal anesthesia was induced. A time-out was performed. The abdomen was prepped and draped in the usual fashion. After injection of 0.25% Marcaine a 1 cm infraumbilical incision was created with a 15 blade scalpel. The umbilical stalk was grasped with a Stevie clamp to elevate the abdominal wall. The infraumbilical midline fascia was cleared over 1 cm and the fascia was scored with cautery. The peritoneum was pierced with a Peon clamp. The Jefe port was placed and the abdomen was insufflated to 15 mmHg. The camera was inserted and there was no evidence of any injury from the entry. Next, 5 mm ports were placed in the suprapubic and left lower quadrant positions under direct vision. The patient was placed in Trendelenburg with the right-side elevated. The terminal ileum was swept away from the cecum and the appendix was visualized. The appendix was inflamed and distended but not perforated and there was no evidence of gangrene. The mesoappendix was divided with the Power-seal to the base. Two PDS Endoloops were placed at the base and a 3rd endoloop was placed about a centimeter distally and the appendix was divided sharply. The specimen was placed in a Endo-Catch bag. A small amount of fluid with suctioned from the base of the appendix and pelvis. The table was flattened and the terminal ileum and omentum were allowed to slide in over the appendiceal stump. Finally, the 5 mm ports were removed under direct vision. The pneumoperitoneum was released and the Jefe port was removed followed by the Endo-Catch bag. Additional local was injected into the fascia and the infraumbilical incision was closed with 2 interrupted 2-0 Vicryl sutures. The skin incisions were closed with 4 Monocryl. Steri-Strips were applied followed by Band-Aids. EBL: 5 mL Specimen: Appendix Post-operative Condition: stable Disposition: PACU
[2024-04-27] MEDS: metroNIDAZOLE 500 MG/100 ML PIGGYBACK 100 MG IV (04:49)
[2024-04-27] MEDS: IBUPROFEN 600 MG TABLET PO (05:42)
[2024-04-27] MEDS: TOPIRAMATE 25 MG TABLET 50 MG PO (05:42)
[2024-04-27] MEDS: CITALOPRAM 10 MG TABLET 40 MG PO (05:42)
--- NOTE | 2024-04-27 08:38 | PC.NURSE ---
Patient is alert and oriented x4, she has 3 small incisions with bandaides all cdi. Patient has a general diet and will be discharging home a bit later. has been up to see patient. She would like to rest now.
--- NOTE | 2024-04-27 13:12 | CM.DPNOTE ---
DCP note CLAY ARTIST reviewed EMR. Per chart review, pt cleared to dc home today, no anticipated CM needs. Per RN, no obvious new CM needs. Pt left prior to being seen by this CLAY ARTIST. P: home with spouse today. CM team will continue to follow as needed. MARYANN Medley
--- NOTE | 2024-05-05 17:19 | PC.NURSE ---
Late Entry: Flagyl infusion initiated 04/26 at 0143 complete at 0244
== END 2024-04-27 13:00 | disposition home or self-care (01) ==
LOC: ED 23:49 → AC 04-26 00:48
PROVIDERS: Admitting Provider Surgery; Emergency Provider Emergency Medicine; PCP Registered Nurse Diabetes Educator; Visit Provider Surgery
PROC: 0DTJ4ZZ Resection of Appendix, Percutaneous Endoscopic Approach (ICD-10-PCS; CPT 44970; principal; 2024-04-26 15:30)
DX: K35.80 Unspecified acute appendicitis (principal)
CPT/HCPCS: 44970; 36415; 74177; 80053; 83690; 85025; 93005; 93010; 96361; 96365; 96366; 96367; 96375; 96376; 99222; 99284; G0378; J0136; J0171; J0330; J0696; J1100; J1790; J2405; J2704; J3010; Q9967

== ENCOUNTER → 2024-07-12 10:49 | Outpatient (CLI) | payer MEDICARE, OTHER, SELFPAY ==
[2024-04-26 01:49] VITALS: BMI 19.3
--- NOTE | 2024-07-12 10:50 | DI.RAD.S_ITS ---
PROCEDURE: XR DEXA AXIAL SKELETON INDICATIONS: reeval COMPARISON: [facility], CR, XR DEXA AXIAL SKELETON, 07/09/2022, 15:06. FINDINGS: Lumbar Spine: Bone mineral density 1.077 g/cm2, T score 0.4, normal. Left Hip: Bone mineral density 0.654 g/cm2, T score -2.4, osteopenia. Left Femoral Neck: Bone mineral density 0.599 g/cm2, T score --2.2 , osteopenia. Right Hip: Bone mineral density 0.693 g/cm2, T score -2.0, osteopenia. Right Femoral Neck: Bone mineral density 0.588 g/cm2, T score -2.3, osteopenia. Fracture Risk Calculation (when applicable): 10-year fracture risk of a major osteoporotic fracture 12 percent and of a hip fracture 3.3 percent. (T score greater or equal to -1.0 to: NORMAL) (T score from -1.1 to -2.4: OSTEOPENIA) (T score less than or equal to -2.5: OSTEOPOROSIS) IMPRESSION: Osteopenia Follow-up guidelines as follows: Osteoporosis: Consider a repeat DEXA and Vertebral Fracture Assessment (VFA) exam in 2 years or sooner if medically necessary, to reassess this patient's status. Osteopenia: Consider a repeat DEXA in 2-3 years to reassess this patient's status, or if there is a new clinical indication. Normal: Consider a repeat DEXA in 5 years or sooner, or if there is a new clinical indication. All treatment decisions require clinical judgment and consideration of individual patient factors, including patient preferences, comorbidities, previous drug use, risk factors not captured in the FRAX model (e.g., frailty, falls, vitamin D deficiency, increased bone turnover, interval significant decline in bone density ) and possible under- or over-estimation of fracture risk by FRAX. In addition, the NOF Guide recommends that FDA-approved medical therapies be considered in postmenopausal women and men age >= 50 years with a: * Hip or vertebral (clinical or morphometric) fracture * T-score of <=-2.5 at the spine or hip * Ten-year fracture probability by FRAX of >= 3% for hip fracture or >=20% for major osteoporotic fracture. People with diagnosed cases of osteoporosis or at high risk for fracture should have regular bone mineral density tests. For patients eligible for Medicare, routine testing is allowed once every 2 years. The testing frequency can be increased to one year for patients who have rapidly progressing disease, those who are receiving or discontinuing medical therapy to restore bone mass, or have additional risk factors. Dictated by: Cheng Waldron M.D. on 07/12/2024 at 12:54 Approved by: Cheng Waldron M.D. on 07/12/2024 at 12:59
== END ==
PROVIDERS: PCP Registered Nurse Diabetes Educator; Referring Provider Registered Nurse Diabetes Educator; Visit Provider Registered Nurse Diabetes Educator
DX: M81.0 Age-related osteoporosis without current pathological fracture (principal)
CPT/HCPCS: 77080